=== PATIENT | male | born 1960 | race Caucasian/White ===

== ENCOUNTER → 2019-10-27 15:29 | Outpatient (CLI) | payer OTHER, SELFPAY ==
--- NOTE | 2019-10-27 15:39 | CT_ITS ---
STUDY: CT FACIAL BONES WITHOUT CONTRAST REASON FOR EXAM: Male, 59 years old. SINUSITIS, DIFFICULTY HEARING. RADIATION DOSAGE (If Supplied By Facility): CTDIvol = ( 33.06 ) mGy, DLP = ( 1005.54 ) mGycm TECHNIQUE: The patient was scanned in a multi detector CT scanner. Sagittal and coronal images were reconstructed. Individualized dose optimization techniques were used for this CT. COMPARISON: None. FINDINGS: Normal soft tissue structures. Normal orbital jalloh and orbital contents. Normal nasal bones and anterior nasal spine. Normal facial bones. There is no demonstrated fracture. Mild to moderate areas of mucosal thickening in the left maxillary sinus with chronic thickening of the sinus jalloh. Patent left maxillary nasoantral window. Normal right maxillary sinus. Normal frontal, ethmoid and sphenoid sinuses. Mild right nasal septal deviation with a large septal spur at the junction of the perpendicular plate and volume are. Most of the temporal bones are not included in the [id number]-ai-ldol. There is mucosal thickening/partial opacification of the right middle ear and probably mild areas of mucosal thickening in the anterior left middle ear. The right mastoid antrum appears partially opacified but right mastoid air cells not adequately included in the field CT/Sinus/Facial Bone IMPRESSION: Circumferential [id number] areas of mucosal thickening in the left maxillary sinus with chronic thickening of the sinus jalloh. Patent left nasoantral window. Temporal bones are not completely included in the ujzus-[id number]-qeme. Mucosal thickening/partial opacification of the right middle ear and probably mild areas of mucosal thickening in the anterior left middle ear. The right mastoid antrum is partially included in the fdnze-so-yood and does appear to be partially opacified. Electronically Signed: Miriam Serrato MD at 16:09 EST , Service support ,
== END ==
PROVIDERS: PCP Family Medicine; Referring Provider Otolaryngology; Visit Provider Otolaryngology
DX: J32.9 Chronic sinusitis, unspecified (principal)
CPT/HCPCS: 70486